=== PATIENT | female | born 1940 | race Caucasian/White ===

== ENCOUNTER 2023-04-04 14:14 | Observation (INO) | payer OTHER, SELFPAY ==
[2023-02-10 11:48] VITALS: BMI 32.2
[2023-04-03] VITALS (12 sets, daily range): BP systolic 125–211; BP diastolic 53–96; PULSE 61–82; RESP 16–20; TEMP 36–37.2; O2SAT 91–98; BMI 32.2
--- NOTE | 2023-04-03 06:00 | DI.RAD.S_ITS ---
PROCEDURE: XR KNEE LT 1TO2V INDICATIONS: TKA TECHNIQUE: 2 view(s) of the knee acquired. COMPARISON: None. FINDINGS: Bones: Patient is status post knee joint arthroplasty. Hardware components are in expected positions. Visualized bony structures are intact. Soft tissues: Overlying postoperative changes are noted. IMPRESSION: Normal alignment after left total knee arthroplasty performed earlier same day. Dictated by: Zohaib Phipps M.D. on 04/05/2023 at 1:01 Approved by: Zohaib Phipsp M.D. on 04/05/2023 at 1:01
[2023-04-03] MEDS: LABETALOL 20 MG/4 ML SYRINGE IV (14:48)
[2023-04-03] MEDS: ACETAMINOPHEN 325 MG TABLET 975 MG PO (14:56)
--- NOTE | 2023-04-03 15:03 | PM.PREOP ---
Pre-operative Note Interval Note History & Physical reviewed/Exam performed by Physician: Yes Changes to H&P: No H&P completed within 30 days and has changed as indicated here:: Blood pressure high today because she stopped her losartan when she stopped her Eliquis. Was treated with labetalol and improved prior to surgery. Anesthesia evaluated okay to proceed.
[2023-04-03] MEDS: CEFAZOLIN 2 GM/100 ML PREMIX 100 ML IV ×2 (15:40→23:42)
--- NOTE | 2023-04-03 16:08 | SUR.OPER ---
Supine on padded OR bed. Pillow under head, arms secured on padded armboards <90 degree abduction. Safety belt across torso. Non-operative leg secured with tape over blanket over lower leg. Operative leg secured in Jj positioner. Foam padded brace at thigh of operative leg.
[2023-04-03] MEDS: BUPIVACAINE 0.25% (PF) 60 ML, EPINEPHrine 0.3 MG INJ (16:16)
[2023-04-03] MEDS: BUPIVACAINE LIPOSOME 266 MG/20 ML VIAL INJ (16:18)
--- NOTE | 2023-04-03 18:16 | P.OP_ITS ---
Operative Date/Time/Diagnoses Date of procedure: 04/03/23 Time of procedure: 15:00 Pre-op diagnosis: Left knee arthritis M17.12 Post-op diagnosis: same Procedure & Clinicians Procedure: Total knee replacement left knee CPT code 46904 Same procedure as scheduled: Yes Indications: The patient has significant pain associated with osteoarthritis of the left knee. It is associated with morning stiffness. Pain interferes with daily normal function including ambulation standing and any activities that are weight-bearing. It interferes with sleep. There is crepitation with range of motion. There is marked joint line tenderness. X-rays show significant levels of osteoarthritis. attempted previous conservative treatment has been rendered. The patient has failed exercise program, medications and previous injections. Patient is indicated for total knee arthroplasty. The risks and benefits of the procedure have been discussed with the patient and given the opportunity to ask questions. The risks of surgery include but are not limited to infection, malunion, nonunion, persistence of pain, damage to nerves and blood vessels, posttraumatic arthritis, DVT, PE, cardiopulmonary complications and . The patient expressed a thorough understanding of the risks and benefits of surgery and has elected to proceed. Consent was signed. During the operation, the services of a physician surgical oncologist were medically indicated and necessary to provide the exposure of the operative site for the surgical procedure and to maintain the limb in a proper position to carry out the operation safely and efficiently. Without a qualified actuarial assistant being present this would extended the operative procedure and made the procedure technically more difficult to perform. Surgeon: Mili Kemp Varnish Inspector: Nadine Gage Yes if Unassisted: Yes Anesthesia Type: General, Spinal and Local Operative Notes Findings: End-stage valgus knee arthritis tricompartmental knee arthritis and full- thickness cartilage loss. Closure Type: primary Specimen(s): none sent Prosthetic devices, grafts, tissues, transplants, or devices: Scott and nephew [employer]CS Femur cobalt chromium size 4 Tibia size 4 Poly 11 mm Patella 32 x 7.5 Estimated Blood Loss (mL): 200 Blood products transfused: none Tourniquet time (min): 85 Procedure in detail: Patient was seen in the preoperative area where the patient and site of surgery were identified in the operative knee was marked informed consent confirmed. This was the left knee. Patient received the appropriate preoperative antibiotics this was 2 g of Ancef. And other preoperative medications and was taken to the operating room placed on operating table in the supine position. Spinal anesthetic were administered. The operative extremity was then prepped and draped in the standard sterile fashion with a nonsterile tourniquet high on the thigh. Patient was placed on the green foam bolsters. A lateral post was placed at the level of the proximal thigh /trochanter area as a lateral post. Formal time-out procedure was performed confirming the patient's side and site of surgery and administration of appropriate preoperative antibiotics and implants were in the room accounted for. All were in agreement. Patient received a preoperative dose of tranexamic acid and then a 2nd dose at tourniq uet release Patient was prepped and draped in the standard sterile fashion and the foot was placed into the leg peck. This was taken into high flexion and the incision was marked out over the anterior knee to the level of the medial tubercle tubercle. The Esmarch was then used for exsanguination and the tourniquet was inflated to 250 mmHg. Was made through the skin and subcutaneous tissue in high flexion this was then brought down into 30? of flexion for the medial parapatellar arthrotomy. A marker pen was used to jenniffer the arthrotomy site for later repair. Joint fluid was evacuated. The anterior osteophytes and soft tissues were removed. Routine medial release was initially made along the medial proximal tibia with Bovie. The patella was 1st cut using the saw sized and prepped and then subluxed throughout the case and protected. The leg was then taken into extension and the patella was everted and the patella was cut to accommodate the patellar button. This was sized to a 32 mm button for a 7.5 mm thickness to recreate the original dimensions of the patella. Poly was removed and the protector replaced and the patella was subluxed and the knee was taken back up into flexion and attention was returned to the femur. Then the rotational landmarks of Whitesides line and the trans epicondylar axis were marked on the femur with electrocautery. Then the intramedullary guide for the femur was created. The distal femoral cut was made in 5? of valgus using the intramedullary guide with the cut setting on 0+ as the patient did not have a preoperative flexion contracture. The ACL and PCL released. The proximal tibia was then cut using the intramedullary guide, taking 7 mm off the less involved side this was the medial plateau. The Brant wing was used to check the slope through the guide. Second pass was made through the tibial cut guide with the saw after the cut tibia was removed plane down about 1 more mm and further smooth then the resection surface. In extension remainders of the medial and lateral menisci were removed. The extension flexion gaps were then checked using both the flexion extension blocks. As expected the knee was tight laterally initially in extension and flexion. Soft tissue release was performed pie crusting the IT band additionally the popliteus was reassessed for the lateral flexion tightness. Lamina maintenance department technician was utilized to reassess the gaps. Was noted during the case that the popliteus tear did complete. The extension and flexion blocks were trialed these were stable with a 10 mm poly in flexion and extension. The femur was then sized and the rotation set using the posterior condyle referencing 5? of external rotation accommodating the known valgus deformity This measured a size 4. Cut block was then placed and the anterior, posterior and chamfer cuts were then made. The posterior osteophytes and soft tissues were then removed. Then in extension the posterior capsule was injected with a mixture of 40 mL of 0.25% Marcaine and 20 mL of Exparel care to avoid excessive injection posterior laterally. The remainder of this was saved for the capsule and subcutaneous tissue and placed during cement curing. Attention was then returned to the tibia and this was prepared with the rotation set by the extramedullary guide. Lined up with the tibial crest and the 2nd toe. The tibial trial was then pinned in place and the trial femoral components were placed. Then the intercondylar notch was cut through the femoral trial to create the box this was done with the distal than the proximal drill and then the box cut distally and then proximally. Next the insert was placed and the trial poly placed. This was stable in flexion and extension and there was a 0- 135 degree range of motion. The patella trial was placed in and was tracking normally. The tibia was then finished with the drill and flange cuts and then this was removed. All trials were removed. The wound and bone was irrigated with p ulsatile lavage. This was then dried with a sponge. The components were verified and opened and the cement was mixed. Cement was applied to the components and then to the bone then the tibia was ce mented in place 1st followed by the femur then the patella. Excess cement was removed. With care looking around the back of the knee. Remainder of the injection was injected around the capsule. trial poly was placed back in the leg was placed into extension for the patellar cementing. After this was cured approximately 15 minutes later and the dilute Betadine solution was placed for at least 3 minutes in the wound this was then irrigated out and the final poly was placed. This was a 11 mm poly. The tourniquet was released hemostasis was achieved. Final 1g of tranexamic acid was given IV at the time of tourniquet release. The capsule was closed with 1. Ethibond suture. And the Quill stitch. Subcutaneous layer was closed with 3-0 Vicryl suture. Skin was closed with a running V lock suture Stratafix Monocryl type suture and Dermabond. An michelle dressing was placed given this patient's requirements of strong anticoagulation. An Lee wrap was applied. Anesthetic was terminated the patient was woken from anesthesia and taken to recovery room in good condition. There no immediate complications from this procedure. The patient will be maintained on a standard total knee re placement protocol with weight-bearing as tolerated. Complications: none Post-operative Condition: stable Disposition: PACU Plan for aftercare: Weightbear as tolerated. Patient will be admitted overnight for pain control. We will work with physical therapy. Will be discharged home when pain controlled and safe for physical therapy. Likely tomorrow. We will restart her Eliquis tomorrow evening which would be 24 hours postop. She already has prescriptions for her pain medications and antinausea medication issued from the clinic. Follow up in 2 weeks in [facility]opedic Clinic. Weightbear as tolerated. Full knee range of motion as tolerated We will start outpatient physical therapy within 1 week
[2023-04-03] MEDS: ACETAMINOPHEN 325 MG TABLET 650 MG PO ×2 (18:54→23:42)
[2023-04-03] MEDS: LACTATED RINGERS 1,000 ML 100 ML IV (18:54)
[2023-04-03] MEDS: HYDROMORPHONE 0.5 MG INJ IV (20:40)
[2023-04-03] MEDS: OXYCODONE IR 10 MG TABLET PO ×2 (20:41→23:43)
[2023-04-03] MEDS: GABAPENTIN 300 MG CAPSULE PO (20:41)
[2023-04-03] MEDS: LOSARTAN 50 MG TABLET PO (20:41)
[2023-04-03] MEDS: hydrOXYzine pamoate 25 MG CAPSULE PO (20:41)
[2023-04-03] MEDS: DOCUSATE 100 MG CAPSULE PO (20:42)
[2023-04-04] VITALS (7 sets, daily range): BP systolic 122–176; BP diastolic 56–92; PULSE 54–99; RESP 16–20; TEMP 35.8–36.6; O2SAT 96–99
[2023-04-04] MEDS: OXYCODONE IR 10 MG TABLET PO ×6 (02:48→23:34)
[2023-04-04] MEDS: hydrOXYzine pamoate 25 MG CAPSULE PO ×2 (02:49→11:35)
[2023-04-04] MEDS: ONDANSETRON 4 MG/2 ML INJ IV (03:08)
[2023-04-04] MEDS: HYDROMORPHONE 0.5 MG INJ IV (03:22)
[2023-04-04 05:22] LABS: Hematocrit 35.4 % (36-46); Hemoglobin 11.9 g/dL (12.0-16.0)
[2023-04-04] MEDS: LEVOTHYROXINE 88 MCG TABLET PO (06:30)
[2023-04-04] MEDS: ACETAMINOPHEN 325 MG TABLET 650 MG PO ×3 (06:31→20:16)
[2023-04-04] MEDS: CEFAZOLIN 2 GM/100 ML PREMIX 100 ML IV (08:24)
[2023-04-04] MEDS: LOSARTAN 50 MG TABLET PO ×2 (09:57→20:17)
[2023-04-04] MEDS: DOCUSATE 100 MG CAPSULE PO ×2 (09:58→20:16)
[2023-04-04] MEDS: OXYBUTYNIN 5 MG ER TAB PO (09:58)
--- NOTE | 2023-04-04 10:09 | PM.PNPO.1 ---
Subjective Subjective Date Patient Seen: 04/04/23 Time Patient Seen: 10:09 Interval history: Pt sitting up in bed, eating breakfast on my visit. She is extremely anxious because she feels she cannot fully wake up. She says she is tired and wants to go back to bed but she know she shouldn't feel this way. She says she has very little sensation in her left leg. She has not been OOB or worked with PT yet. Exam Vital Signs (past 8 hours): - 04/04/23 04:37 04/04/23 08:01 04/04/23 09:57 Temperature 96.9 F L 97.8 F Pulse Rate 99 H 54 L 69 Respiratory Rate 20 17 Blood Pressure 176/92 H 124/56 L 137/61 Pulse Oximetry 96 97 Oxygen Flow Rate 0 Oxygen Delivery Method Room Air Oxygen Flow Rate 0 Narrative Exam Narrative: 3/4 strength in hip flexors, 4/5 hamstrings, quadriceps, 5/5 DF, PF, EHL on left. Sensation to light touch is dulled in LLE vs RLE. Calf soft and compressible. KRISTINA functioning, EUNICE and KRISTINA CDI. Objective Labs 04/04/23 04:35 Labs: Laboratory Results - last 24 hr 04/04/23 04:35 Hgb 11.9 L Hct 35.4 L PFSH Medical History (Updated 04/04/23 @ 10:13 by Nadine Rasmussen PA-C) Stress bladder incontinence, female High myopia Hearing loss CAD (coronary artery disease) History of sleep apnea History of gastroesophageal reflux (GERD) History of arthritis Trigeminal neuralgia History of TIA (transient ischemic attack) History of hearing loss History of hyperlipidemia History of hypertension History of hypothyroidism History of anticoagulant therapy History of chronic atrial fibrillation Surgical History (Updated 04/04/23 @ 10:13 by Nadine Rasmussen PA-C) History of surgery (~2004) History of surgery (~09/30/17) History of inguinal hernia repair (~11/26/16) History of hip replacement History of coronary artery stent placement (~2001) History of coronary angioplasty (~06/2001) History of cochlear implant History of cataract extraction (~2012) History of cardiac catheterization (~12/2001) History of angioplasty Social History household members: spouse and none Smoking Status: Former smoker alcohol intake: current Assessment & Plan Post-op Assessment and plan (1) Total knee replacement status: Assessment and Plan narrative: Pt had spinal and local anesthesia yesterday, which is likely contributing to the dysesthesia in her left leg. Given this as well as her anxiety and apprehension, I anticipate slow progress with PT. It would be in the pts best interest to be admitted as an inpatient for continued therapy and monitoring of vital signs, pain, and return of feeling in her operative leg. Plan discussed by phone with pts daughter, Akua, and she is agreeable. (2) Acute postoperative anemia due to expected blood loss: Assessment and Plan narrative: Asymptomatic, no intervention needed at this time but will continue to monitor. Postoperative Procedures: Procedures Operation Date: 04/03/23 14:15 Actual Procedure Side Surgeon p Total Knee Arthroplasty Left Mili Kemp MD Postoperative day: 1 Quality VTE Deep Vein Thrombosis/Pulmonary Embolism Present on Admission: No
--- NOTE | 2023-04-04 10:15 | PT.IIE ---
Current Diagnoses Acute posthemorrhagic anemia (04/03/23) Unilateral primary osteoarthritis, left knee (04/03/23) Presence of unspecified artificial knee joint (04/03/23) Surgery Performed Operation Date: 04/03/23 14:15 Actual Procedures p Total Knee Arthroplasty(Left) - Mili Kemp MD Surgical History (Last Updated 02/10/23 @ 11:44 by Carol Hawkins, FARIHA) History of angioplasty History of cardiac catheterization (~12/2001) History of cataract extraction (~2012) History of cochlear implant History of coronary angioplasty (~06/2001) History of coronary artery stent placement (~2001) History of hip replacement History of inguinal hernia repair (~11/26/16) History of surgery (~09/30/17) History of surgery (~2004) Medical History (Last Updated 02/11/23 @ 15:17 by Angel Victor RN) CAD (coronary artery disease) Hearing loss High myopia History of anticoagulant therapy History of arthritis History of chronic atrial fibrillation History of gastroesophageal reflux (GERD) History of hearing loss History of hyperlipidemia History of hypertension History of hypothyroidism History of sleep apnea History of TIA (transient ischemic attack) Stress bladder incontinence, female Trigeminal neuralgia Physical Therapy Inpatient Evaluation/Re-Eval M1 PT/OT-IP Prior Functional Status Start: 04/04/23 13:12 Freq: NEEDED Status: Active Protocol: Document 04/04/23 10:15 AB (Rec: 04/04/23 13:36 AB [id number]) Medical Review Prior Functional Status Medical History Reviewed Yes Communication able to make needs known; [facility] Mobility and Gait pt stated that she was modified independent with all mobilities and ambulation without AD but tends to furniture cruise Social History Household Members spouse,none Living Arrangements House Number of Floors (Floors) One Floor Number of Stairs To Enter/Railing? 3 steps R rail ascending Home Environment Standard Height Toilet,Walk in Shower,Tub/Shower Home Equipment Front Wheel Walker,Straight Cane,Hand Held Shower,Grab Bars Near Toilet,Grab Bars In Shower M2 PT-IP Current Condition Start: 04/04/23 13:12 Freq: NEEDED Status: Active Protocol: Document 04/04/23 10:15 AB (Rec: 04/04/23 13:36 AB [id number]) Physical Therapy Current Condition Current Condition Evaluation Date 04/04/23 Treatment Diagnosis s/p L TKA; difficult in walking Onset Date 04/03/23 M3 PT-IP Subjective Start: 04/04/23 13:12 Freq: NEEDED Status: Active Protocol: Document 04/04/23 10:15 AB (Rec: 04/04/23 13:36 AB [id number]) Subjective Physical Therapy Visit Type Type Initial Evaluation Visit Start Time 10:15 Visit Stop Time 11:35 Total Visit Minutes 80 Number of MACHINE OPERATOR HOP PICKER Visits 0 Physical Therapy Visit Comments Patient Comments agreeable to do PT Therapy Pain Assessment Pain When Pain Assessed At Rest Pain Present Pain Present Pain Reported Location Left Knee Intensity 2 Scale Used increases with mobility Pain Behaviors Guarding,Wincing Pain Management Techniques Apply Cold,Distraction,Re- positioning,Timing of Activity with Medications M4 PT-IP Mobility and Gait Start: 04/04/23 13:12 Freq: NEEDED Status: Active Protocol: Document 04/04/23 10:15 AB (Rec: 04/04/23 13:36 AB [id number]) PT-Bed Mobility Assessment Supine to Sit Supine to Sit Standby Assistance PT-Transfer Assessment Sit to and From Stand Sit to and from Stand Contact Guard Assistance, Minimal Assistance,1 Person Assistance,Use of Upper Extremities Equipment Transfer Assistive Device Gait Belt,Front Wheeled Walker Orthotic/Prosthetic Devices or Brace: No Transfers Transfer Destination Toilet Transfer Technique ambulated Transfer Ability Level of Assist Contact Guard Assistance, Minimal Assistance,Use of Upper Extremities Comments Mobility Comments pt supine in bed and agreeable to do PT. pt is very particular with her ways and tends to direct her own care. completed supine to sit SBA. able to sit on EOB SBA. Pt initially refusing use of safety belt. educated pt and pt then agreed for PT to use safety belt. pt requesting to use the toilet. completed sit to stand CGA to min A and max cues. pt ambulated using fWW towards the toileting ~ 15 ft CGA to min A. requiring min A for controlled descent to the toilet using grab bar. pt completed sit to stand from the toilet CGA to min A using grab bar and ambulated towards the sink using FWW CGA to min A. CGA for standing balance while completing handwashing using FWW for support. pt ambulated back on the chair using fWW CGA. pt agreed to do stairs. completes sit to stand from the chair CGA and ambulated ~ 30 ft using fWW CGA to min A. pt stated that she cannot walk farther due to c/o increase knee pain. assisted pt on the w/c towards the stairs. pt completed up/down 3 steps using B rail min A. able to do 2 steps up using R rail ascending but needed B rails for support for descending stairs. pt stated that she cannot take a step down with just 1 rail use. assisted pt back to her room. ambulated from the w/c to the chair using FWW min A ~ 25 ft. pt increase confusion and pain and needing one step commands with all tasks for safety. positioned pt on the chair. call light and table placed within reach. informed pt regarding caregiver training and wants PT to call her daughter. pt stated that she does not think her daughter will be able to assist her and is considering going to SNF. nurse informed that pt refused pain meds this morning. talked to pt regarding pain management and how this will affect her mobility. pt understood. call pt's daughter but with no answer. Gait Assessment Gait Gait Assistance Required: Contact Guard Assist,Minimum Assistance,1 Person Assist Distance (Feet) 30 Able to Maintain Weight Bearing Status Yes During Gait Assistive Devices Assistive Device Gait Belt,Front Wheeled Walker Orthotic/Prosthetic Devices or Brace: No Gait Deviations General Gait Pattern Decreased Stride Length, Decreased Feet Clearance,Step- to Gait Factors Limiting Gait Function Factors Limiting Gait Function Decreased Activity Tolerance, Decreased Strength,Difficulty Following Directions,Limited Range of Motion,Pain,Poor Balance,Poor Safety Awareness Stair Climbing Assessment Evaluation Level of Assist On Stairs Minimal Assistance,1 Person Assistance Devices Stair Climbing Assistive Devices Left Railing,Right Railing Technique/Endurance Stair Climbing Direction Ascend and Descend Stair Climbing Technique Step to Step Number of Steps Climbed 1 Query Text: Stair Climbing Set # Repetitions (reps) 1 PT-Balance Assessment Sitting Balance and Reactions Static Sitting Balance Ability Good Dynamic Sitting Balance Ability Good Standing Balance and Reactions Static Standing Balance Ability Fair Dynamic Standing Balance Ability Fair Device Used FWW M5 PT-IP Objective Assessments Start: 04/04/23 13:12 Freq: NEEDED Status: Active Protocol: Document 04/04/23 10:15 AB (Rec: 04/04/23 13:36 AB [id number]) Orientation Orientation/Cognition Level of Alertness Alert Orientation Name,Place,Situation Language Function Ability Hard of Hearing Safety Awareness Decreased Safety Awareness Memory Description Short Term Impaired Comments with confusion Gross Range of Motion Lower Extremity ROM Impairments L knee flexion: ~ 70 deg Strength Lower Extremity Strength Assessment Left Impaired Hip 4-/5 Knee 3+/5 Muscle Tone Muscle Tone WNL Yes M6 PT-IP Treatment Start: 04/04/23 13:12 Freq: NEEDED Status: Active Protocol: Document 04/04/23 10:15 AB (Rec: 04/04/23 13:36 AB [id number]) Physical Therapy Treatment Education Education Provided Precautions,Weight Bearing Status,Post-Op Packet,Safety M7 PT-IP Assessment and Plan Start: 04/04/23 13:12 Freq: NEEDED Status: Active Protocol: Document 04/04/23 10:15 AB (Rec: 04/04/23 13:36 AB [id number]) PT Summary Assessment and Plan Potential Rehabilitation Potential Fair Status of Condition at Evaluation Evolving Summary Impairments Pain,ROM,Strength,Balance, Coordination,Sensation,Tone, Cognition,Bed Mobility, Transfers,Gait,Activity Tolerance Assessment Summary pt is an 82 y/o female s/p L TKA POD 1 and is WBAT. pt requiring min A with mobility using FWW but with decrease activity tolerance and only able to ambulate ~ 30 with c/o increase knee pain. pt also unable to successfuly complete stairs using 1 rail. caregiver training will be initiated this afternoon but pt stated that her daughter might not be able to assist her and is considering going to SNF rehab. will continue to assess progress. Goals Bed Mobility Goal Independent Transfer Goal Independent,Front Wheeled Walker Gait Goal Independent,Front Wheel Walker Gait Distance 250 Other Goals up/down 3 steps R rail ascending SBA Days to Meet Goals 5 Frequency of Treatment Frequency Of Treatment Twice a Day Treatment Plan Physical Therapy Treatment Plan Bed Mobility Training,Transfer Training,Gait Training, Therapeutic Exercise,Balance Retraining,Post Op Education, Discharge Planning,Hot or Cold Pack,Neuromuscular Re-ed, Coordination Retraining,Manual Therapy Weight Bearing Status Weight Bearing Status Weight Bear as Tolerated Allowed Weight Bearing Amount (enter % LLE WBAT or #) (%) Recommendations To Nursing Amount of Assist Needed 1 Person Assist Discharge Recommendations PT Discharge Recommendations Home with 22/12 Assist Available,Home Health,SNF Rehab,Home vs SNF Transportation Needs at Discharge Private Vehicle,Wheelchair/ Cabulance
--- NOTE | 2023-04-04 12:28 | CM.DANOTE ---
CM team attempted to complete assessment this morning and again this afternoon. Patient remains very sleepy and cannot stay awake for conversation. Sitting up in chair, awakens, then appologizes for being so tired. Call to daughter kAua Brennan at [phone] with patients permission, VM left requesting return call to CM team. Discharge Planning/Care Management Pre-Anesthesia Assessment Start: 02/10/23 11:48 Freq: Status: Complete Protocol: Document 02/10/23 11:48 TC (Rec: 02/10/23 12:10 TC [id number]) Pre-Anesthesia Assessment PAC Comment Patient unavailable for PAC, she was instructed by underwater hunter to stop Elliquis 3-4 days pre op and resume POD 1 Patient Information Reviewed Via Chart Review Assessment Completed With Other Comment medical records from [facility] Diagnostic Results BMP/CMP,CBC,EKG Comment scanned Comment Destini Matos Medical Clearance Received Not Applicable Seen Specialist in Last 12 Months Yes Specialist Seen Senior C Developer,Orthopedist Primary Language Azerbaijani Preferred Language Azerbaijani Senior Data Scientist Required No Height 152.4 cm Weight 74.843 kg Body Mass Index (BMI) 32.2 Hearing Ability Hearing Impaired,Use of Hearing Aid Visual Assist Contacts Anesthesia Review Requested No Supervisor Of Guidance And Testing No alcohol intake current alcohol intake frequency a few times a week Smoking Status Former smoker how long ago did patient quit smoking about 45 years (1977) Substance Use Type marijuana Musculoskeletal Symptoms Abnormal Gait,Difficulty Walking,Joint Pain,Joint Stiffness Patient is completely paralyzed or No completely immobile Mental Status Oriented to own ability Is patient on oxygen? No Does patient have JEREZ/SOB No Hx Sleep Apnea Yes Sleep apnea treatment Treatment unknown Currently Taking a Beta Parth No Anti-Coagulant Therapy Yes: Jesenia Has a Senior C Developer Yes Senior C Developer name Catherine Cardiac Testing Yes: stress test July 2020- low risk Hx Pacemaker/ICD No Pacemaker Rep Required? No Cardiac Clearance Received Yes Comment note scanned 10/07/22 Bladder Pattern Incontinent, Stress,Urgency Urinary Catheter Present No Hx Urinary Self Catheterization No Diabetes No Patient No Lactating No Presence of External or Internal Medical Yes: Osito IOL's, Cochlear Devices implant, Coronary stent, hip Lives With none Support System Child/Children
[2023-04-04] MEDS: OXYCODONE IR 5 MG TABLET PO (13:48)
--- NOTE | 2023-04-04 14:05 | PT.IPTN ---
Current Diagnoses Acute posthemorrhagic anemia (04/03/23) Unilateral primary osteoarthritis, left knee (04/03/23) Presence of unspecified artificial knee joint (04/03/23) Surgery Performed Operation Date: 04/03/23 14:15 Actual Procedures p Total Knee Arthroplasty(Left) - Mili Kemp MD Physical Therapy Treatment Note M2 PT-IP Current Condition Start: 04/04/23 13:12 Freq: NEEDED Status: Active Protocol: Document 04/04/23 10:15 AB (Rec: 04/04/23 13:36 AB [id number]) Physical Therapy Current Condition Current Condition Evaluation Date 04/04/23 Treatment Diagnosis s/p L TKA; difficult in walking Onset Date 04/03/23 M3 PT-IP Subjective Start: 04/04/23 13:12 Freq: NEEDED Status: Active Protocol: Document 04/04/23 14:05 AB (Rec: 04/04/23 15:47 AB [id number]) Subjective Physical Therapy Visit Type Type Treatment Note Visit Start Time 14:05 Visit Stop Time 15:25 Total Visit Minutes 80 Number of PROPERTY MAN Visits 0 Therapy Pain Assessment Pain When Pain Assessed At Rest Pain Present Pain Present Pain Reported Location Left Knee Intensity 4 Scale Used Numeric (0 - 10) Pain Management Techniques Distraction,Modification of Treatment,Re-positioning, Timing of Activity with Medications M4 PT-IP Mobility and Gait Start: 04/04/23 13:12 Freq: NEEDED Status: Active Protocol: Document 04/04/23 14:05 AB (Rec: 04/04/23 15:47 AB [id number]) PT-Bed Mobility Assessment Supine to Sit Supine to Sit Standby Assistance Sit to Supine Sit to Supine Standby Assistance PT-Transfer Assessment Sit to and From Stand Sit to and from Stand Contact Guard Assistance,1 Person Assistance,Use of Upper Extremities Equipment Transfer Assistive Device Gait Belt,Front Wheeled Walker Orthotic/Prosthetic Devices or Brace: No Transfers Transfer Destination Bed,Chair Transfer Technique Stand Step Pivot Transfer Ability Level of Assist Contact Guard Assistance,1 Person Assistance,Use of Upper Extremities Comments Mobility Comments pt sitting on the chair. daughter in room with pt. caregiver training conducted. educated daughter on how to use safety belt and how to assist pt. daughter was able to put safety belt on pt and assisted pt with sit to stand CGA. pt completed step transfer to bed using FWW CGA with daughter assisting. pt completed sit<>supine SBA. pt completed sit to stand from EOB CGA and ambulated in the hallway ~ 75 ft using FWW CGA. educated pt and daughter regarding stair climbing training using R rail ascending. pt completed up/ down steps holding on to R rail with B hands min A and cues. assisted pt back to her room. daughter assisted pt with sit to stand and ambulation towards the toilet per pt's request. nurse in room and assisted pt with toileting needs. informed daughter regarding DME needs. pt will need a RTS with handles. pt stated that she is not ready to go home and wants to go to SNF even if she has to pay out of pocket. pharmacy general manager is aware. Gait Assessment Gait Gait Assistance Required: Contact Guard Assist Distance (Feet) 75 Able to Maintain Weight Bearing Status Yes During Gait Assistive Devices Assistive Device Gait Belt,Front Wheeled Walker Orthotic/Prosthetic Devices or Brace: No Gait Deviations General Gait Pattern Decreased Stride Length, Decreased Feet Clearance Factors Limiting Gait Function Factors Limiting Gait Function Decreased Activity Tolerance, Decreased Strength,Difficulty Following Directions,Limited Range of Motion,Pain,Poor Balance,Poor Safety Awareness Stair Climbing Assessment Evaluation Level of Assist On Stairs Minimal Assistance Devices Stair Climbing Assistive Devices Right Railing Technique/Endurance Stair Climbing Direction Ascend and Descend Stair Climbing Technique Step to Step Number of Steps Climbed 3 M5 PT-IP Objective Assessments Start: 04/04/23 13:12 Freq: NEEDED Status: Active Protocol: Document 04/04/23 10:15 AB (Rec: 04/04/23 13:36 AB [id number]) Orientation Orientation/Cognition Level of Alertness Alert Orientation Name,Place,Situation Language Function Ability Hard of Hearing Safety Awareness Decreased Safety Awareness Memory Description Short Term Impaired Comments with confusion Gross Range of Motion Lower Extremity ROM Impairments L knee flexion: ~ 70 deg Strength Lower Extremity Strength Assessment Left Impaired Hip 4-/5 Knee 3+/5 Muscle Tone Muscle Tone WNL Yes M6 PT-IP Treatment Start: 04/04/23 13:12 Freq: NEEDED Status: Active Protocol: Document 04/04/23 14:05 AB (Rec: 04/04/23 15:47 AB [id number]) Physical Therapy Treatment Education Education Provided Safety M7 PT-IP Assessment and Plan Start: 04/04/23 13:12 Freq: NEEDED Status: Active Protocol: Document 04/04/23 14:05 AB (Rec: 04/04/23 15:47 AB [id number]) PT Summary Assessment and Plan Potential Rehabilitation Potential Fair Summary Impairments Pain,ROM,Strength,Balance, Coordination,Sensation,Tone, Cognition,Bed Mobility, Transfers,Gait,Activity Tolerance Progress Towards Goals Slow Progress due to Pain,Slow Progress due to Activity Tolerance Assessment Summary pt progressing slowly with mobility and needing CGA using a FWW. Caregiver training conducted and daughter was able to assist pt safely. pt may go home when medically stable. pt stated that she is not ready to go home and wants to go to SNF rehab. pharmacy general manager is aware. will continue to assess progress. Goals Bed Mobility Goal Independent Transfer Goal Independent,Front Wheeled Walker Gait Goal Independent,Front Wheel Walker Gait Distance 250 Other Goals up/down 3 steps R rail ascending SBA Days to Meet Goals 5 Frequency of Treatment Frequency Of Treatment Twice a Day Treatment Plan Physical Therapy Treatment Plan Bed Mobility Training,Transfer Training,Gait Training, Therapeutic Exercise,Balance Retraining,Post Op Education, Discharge Planning,Hot or Cold Pack,Neuromuscular Re-ed, Coordination Retraining,Manual Therapy Weight Bearing Status Weight Bearing Status Weight Bear as Tolerated Allowed Weight Bearing Amount (enter % LLE WBAT or #) (%) Recommendations To Nursing Amount of Assist Needed 1 Person Assist Discharge Recommendations PT Discharge Recommendations Home with 22/12 Assist Available,Home Health Transportation Needs at Discharge Private Vehicle
--- NOTE | 2023-04-04 14:14 | CM.DANOTE ---
Addendum entered by Bernie Archer R.N. 04/04/23 15:52: CM team met with patient and her daughter Akua who now offer that they don't feel comfortable going home with HH PT and are wanting to private pay for SNF. Packets sent to 1. [facility], 2. [facility], 3. [facility] in order of patient choice. CM team also called each facility and will follow up in am. Original Note: Reviewed chart with existing information, and patient discussed in multidisciplinary rounds this morning. Met with patient and introduced to care coordination and discharge planning. They agree to assessment. Pt is a 82 year old admitted for planned left knee total arthroplasty with Dr. Loco. Patient was very disoriented this morning for attempted CM assessment. Now mentally alert, clear, but states pain remains 9/10. Daughter Akua at bedside for caregiver training, but outlines concern at home in getting into home. She plans to stay with mom, but welcomes feedback from PT re possible SNF needs for short term rehab. SNF list provided and patient daughter agree that [facility] first choice if indicated. HH PT acceptable as well choice to be determined. PCP: CHRISTINE DME: Joseph KAMARAe Payer: Kevyn YAN Barriers: pain, strength, balance training Bernie Archer RN, CM Discharge Planning/Care Management CM Discharge Assessment Start: 04/04/23 14:10 Freq: Status: Active Protocol: Document 04/04/23 14:11 BQ (Rec: 04/04/23 14:13 BQ [id number]) Discharge Planning Assessment Assigned Fruit Or Nut Farm Worker Bernie Archer RN, CM Advance Directives? Yes Advance Directives on File No History Provided By Patient,Medical Record Has Patient been admitted in last 30 No days? Prior Living Arrangements House Household Members spouse,none Type of transporation used prior to Drives own vehicle admit Independent with ADL's Yes Is patient alert and oriented? Yes Caregiver for Another No DME Already Rented / Owned FWW / Walker,Cane Patient/Family Preference Snf Facility Barriers to Discharge Yes Comment Pain, strength, balance, safety Discharge Plan Snf Facility Referrals Initiated Snf Medicare Choice List Provided Yes Medicare choice list reviewed on patient,family electronic tablet with SNF/HH Preference [facility] Has Agency SNF been contacted Yes Whiteboard Updated in Patient Room with Yes name and ext. # of Fruit Or Nut Farm Worker Review Status In Process Next Review Type Continued Stay Review Pre-Anesthesia Assessment Start: 02/10/23 11:48 Freq: Status: Complete Protocol: Document 02/10/23 11:48 TC (Rec: 02/10/23 12:10 TC [id number]) Pre-Anesthesia Assessment PAC Comment Patient unavailable for PAC, she was instructed by dairy helper to stop Elliquis 3-4 days pre op and resume POD 1 Patient Information Reviewed Via Chart Review Assessment Completed With Other Comment medical records from [facility] Diagnostic Results BMP/CMP,CBC,EKG Comment scanned Comment Destini Matos Medical Clearance Received Not Applicable Seen Specialist in Last 12 Months Yes Specialist Seen Rug Measurer,Orthopedist Primary Language Romanian Preferred Language Romanian Road Marker Required No Height 152.4 cm Weight 74.843 kg Body Mass Index (BMI) 32.2 Hearing Ability Hearing Impaired,Use of Hearing Aid Visual Assist Contacts Anesthesia Review Requested No Customer Trainer No alcohol intake current alcohol intake frequency a few times a week Smoking Status Former smoker how long ago did patient quit smoking about 45 years (1977) Substance Use Type marijuana Musculoskeletal Symptoms Abnormal Gait,Difficulty Walking,Joint Pain,Joint Stiffness Patient is completely paralyzed or No completely immobile Mental Status Oriented to own ability Is patient on oxygen? No Does patient have JEREZ/SOB No Hx Sleep Apnea Yes Sleep apnea treatment Treatment unknown Currently Taking a Beta Parth No Anti-Coagulant Therapy Yes: Jesenia Has a Rug Measurer Yes Rug Measurer name Catherine Cardiac Testing Yes: stress test July 2020- low risk Hx Pacemaker/ICD No Pacemaker Rep Required? No Cardiac Clearance Received Yes Comment note scanned 10/07/22 Bladder Pattern Incontinent, Stress,Urgency Urinary Catheter Present No Hx Urinary Self Catheterization No Diabetes No Patient No Lactating No Presence of External or Internal Medical Yes: Osito IOL's, Cochlear Devices implant, Coronary stent, hip Lives With none Support System Child/Children
[2023-04-04] MEDS: APIXABAN 5 MG TABLET PO (20:17)
[2023-04-05 00:05] VITALS: BP 172/57; PULSE 75; RESP 20; TEMP 36.4; O2SAT 95
[2023-04-05] MEDS: ACETAMINOPHEN 325 MG TABLET 650 MG PO ×3 (06:50→18:00)
[2023-04-05] MEDS: OXYCODONE IR 5 MG TABLET PO ×4 (06:51→18:00)
[2023-04-05] MEDS: LEVOTHYROXINE 88 MCG TABLET PO (06:51)
--- NOTE | 2023-04-05 07:46 | P.DS_ITS ---
History of Present Illness History of Present Illness Date Patient Seen: 04/05/23 Time Patient Seen: 07:46 Chief complaint: OPB Narrative: Operative Date/Time/Diagnoses Date of procedure: 04/03/23 Time of procedure: 15:00 Pre-op diagnosis: Left knee arthritis M17.12 Post-op diagnosis: same Procedure & Clinicians Procedure: Total knee replacement left knee CPT code 64728 Same procedure as scheduled: Yes Indications: The patient has significant pain associated with osteoarthritis of the left knee. It is associated with morning stiffness. Pain interferes with daily normal function including ambulation standing and any activities that are weight-bearing. It interferes with sleep. There is crepitation with range of motion. There is marked joint line tenderness. X-rays show significant levels of osteoarthritis. attempted previous conservative treatment has been rendered. The patient has failed exercise program, medications and previous injections. Patient is indicated for total knee arthroplasty. The risks and benefits of the procedure have been discussed with the patient and given the opportunity to ask questions. The risks of surgery include but are not limited to infection, malunion, nonunion, persistence of pain, damage to nerves and blood vessels, posttraumatic arthritis, DVT, PE, cardiopulmonary complications and . The patient expressed a thorough understanding of the risks and benefits of surgery and has elected to proceed. Consent was signed. During the operation, the services of a physician operating room surgical technologist were medically indicated and necessary to provide the exposure of the operative site for the surgical procedure and to maintain the limb in a proper position to carry out the operation safely and efficiently. Without a qualified equal opportunity assistant being present this would extended the operative procedure and made the procedure technically more difficult to perform. Surgeon: Mili Kemp Boring Machine Operator Horizontal: Nadine Gage Yes if Unassisted: Yes Anesthesia Type: General, Spinal and Local Operative Notes Findings: End-stage valgus knee arthritis tricompartmental knee arthritis and full- thickness cartilage loss. Closure Type: primary Specimen(s): none sent Prosthetic devices, grafts, tissues, transplants, or devices: Scott and nephew [employer] BCS Femur cobalt chromium size 4 Tibia size 4 Poly 11 mm Patella 32 x 7.5 Estimated Blood Loss (mL): 200 Blood products transfused: none Tourniquet time (min): 85 Discharge Providers Provider Discharge Date: 04/05/23 Consults: 04/03/23 06:00 Consult to Anesthesiology Routine Comment: Consulting Provider: Anesthesiologist Reason for consultation: Regional block for post operative pain control 04/03/23 18:29 Consult to Discharge Planning Routine Comment: Consult to Occupational Therapy Evaluate & Treat Comment: Physician Instructions: Evaluate and treat Consult to Physical Therapy Evaluate & Treat Comment: Physician Instructions: postop TKA protocol Discharge provider: Nadine Rasmussen PA-C Summary Hospital Course Discharge Diagnosis: Left knee osteoarthritis, s/p left total knee arthroplasty Hospital Course: Ms Turk'roberta hospital course was unremarkable. On the morning of POD# 2, she was feeling well. PT was recommending discharge home with 24/7 assist available. While she does have the help of her daughter, Akua, it sounds from CM notes and from Akua that pt would like to go to a rehab facility prior to going home. She is eating and voiding without difficulty and her pain is well- controlled with oral medication. Exam Vital Signs (past 8 hours): Oxygen Delivery Method Room Air Oxygen Flow Rate 0 Narrative Exam Narrative: 5/5 strength in hip flexors, quadriceps, hamstrings, PF, DF, EHL on left. Sensation to light touch intact throughout LLE. Calf soft, compressible, nontender. KRISTINA dressing functioning, CDI. Objective Labs 04/04/23 04:35 PFSH Medical History (Updated 04/04/23 @ 10:13 by Nadine Rasmussen PA-C) Stress bladder incontinence, female High myopia Hearing loss CAD (coronary artery disease) History of sleep apnea History of gastroesophageal reflux (GERD) History of arthritis Trigeminal neuralgia History of TIA (transient ischemic attack) History of hearing loss History of hyperlipidemia History of hypertension History of hypothyroidism History of anticoagulant therapy History of chronic atrial fibrillation Surgical History (Updated 04/04/23 @ 10:13 by Nadine Rasmussen PA-C) History of surgery (~2004) History of surgery (~09/30/17) History of inguinal hernia repair (~11/26/16) History of hip replacement History of coronary artery stent placement (~2001) History of coronary angioplasty (~06/2001) History of cochlear implant History of cataract extraction (~2012) History of cardiac catheterization (~12/2001) History of angioplasty Social History household members: spouse and none Smoking Status: Former smoker alcohol intake: current Discharge Assessment & Plan Assessment and Plan Assessment: Left knee osteoarthritis, s/p left total knee arthroplasty Acute anemia d/t expected surgical blood loss Plan of Treatment: Discharge pending SNF acceptance. Eliquis BID for VTE prophylaxis, multimodal pain control. Follow up in office in 2 weeks as scheduled. Discharge Plan Discharge Plan Patient Disposition: SNF Transportation: Facility vehicle I certify the postop hospital alf care is medically necessary on a continuing basis for any conditions for which he/ she received care during this hospitalization.: Yes The receiving facility has agreed to accept transfer and provide medical treatment.: Yes Discharge orders & Medications Prescriptions: New acetaminophen 325 mg Tablet 650 mg PO Q6H PRN (Reason: fever or pain) Qty: 240 0RF docusate sodium 100 mg Capsule 100 mg PO BID PRN (Reason: constipation) Qty: 60 1RF oxycodone 5 mg Tablet 5 mg PO Q4-6H PRN (Reason: Pain, Moderate (4-6)) Qty: 60 0RF Continued tolterodine 2 mg capsule,extended release 24hr 2 mg PO DAILY levothyroxine 88 mcg tablet 88 mcg PO DAILY Hair,Skin and Nails Tablet 1 tab PO DAILY losartan 100 mg tablet 50 mg PO BID neomycin-polymyxin B-dexameth 3.5 mg/g-10,000 unit/g-0.1 % ointment 1 ea EYE-BOTH DAILY Patient Comments: [NO ORIGINAL SIG] apple cider vinegar 500 mg Tablet 500 mg PO DAILY rosuvastatin 20 mg tablet 20 mg PO ONCE PM cholecalciferol (vitamin D3) [Vitamin D3] 125 mcg (5,000 unit) Tablet 125 mcg PO DAILY Eliquis 5 mg tablet 5 mg PO BID Follow up/Referrals: Mili Kemp MD [Physician] - As previously scheduled (Follow up with Nadine Rasmussen PA-C, on 04/16/2023 @ 2:30 pm at [facility] in [place].) Diet/Activity/Treatments Diet: Diet as Tolerated Activity: Walk frequently! Weightbearing as tolerated to left leg. Cold/Heat Therapy: Ice to knee as needed for pain. Skin/Wound/Dressing Care Report to your healthcare provider any signs of infection, such as:: chills, fever, night sweats, unusual drainage and unusual redness Dressing: May shower with dressing on. The battery pack will in 5-7 days, at which time you can cut it off and dispose of it. Leave the dressing on until your follow up appointment in the office. Call the office if the dressing becomes saturated inside. Special Rehabilitation Services Reason for rehabilitation: Post-operative therapy Rehab type: Physical therapy and Occupational therapy Visit Report/Discharge Packet Instructions: DI for Knee Replacement Stand Alone Forms: Surgery Discharge Discharge Data Attending Provider: Mili Kemp VTE Deep Vein Thrombosis/Pulmonary Embolism Present on Admission: No
[2023-04-05 08:48] VITALS: BP 140/70; PULSE 70; RESP 17; TEMP 36.7; O2SAT 96
--- NOTE | 2023-04-05 09:08 | CM.DPC ---
JOHAN recieved return call on from yesterday at 1655 concerning packet sent to [place] at [facility]. She relays a minumum of 5 day stay. Call back to [place] with left for her review.
[2023-04-05 09:10] VITALS: BP 140/70; PULSE 70
[2023-04-05] MEDS: DOCUSATE 100 MG CAPSULE PO (09:10)
[2023-04-05] MEDS: OXYBUTYNIN 5 MG ER TAB PO (09:10)
[2023-04-05] MEDS: APIXABAN 5 MG TABLET PO ×2 (09:10→21:11)
[2023-04-05] MEDS: LOSARTAN 50 MG TABLET PO ×2 (09:10→21:11)
--- NOTE | 2023-04-05 10:30 | PT.IPTN ---
Current Diagnoses Acute posthemorrhagic anemia (04/03/23) Unilateral primary osteoarthritis, left knee (04/03/23) Presence of unspecified artificial knee joint (04/03/23) Surgery Performed Operation Date: 04/03/23 14:15 Actual Procedures p Total Knee Arthroplasty(Left) - Mili Kemp MD Physical Therapy Treatment Note M2 PT-IP Current Condition Start: 04/04/23 13:12 Freq: NEEDED Status: Active Protocol: Document 04/04/23 10:15 AB (Rec: 04/04/23 13:36 AB [id number]) Physical Therapy Current Condition Current Condition Evaluation Date 04/04/23 Treatment Diagnosis s/p L TKA; difficult in walking Onset Date 04/03/23 M3 PT-IP Subjective Start: 04/04/23 13:12 Freq: NEEDED Status: Active Protocol: Document 04/05/23 10:05 KS (Rec: 04/05/23 11:44 KS [id number]) Subjective Physical Therapy Visit Type Type Treatment Note Visit Start Time 10:05 Visit Stop Time 10:30 Total Visit Minutes 25 Number of SECURITY POLICE Visits 1 Physical Therapy Visit Comments Patient Comments agreeable to do PT Therapy Pain Assessment Pain When Pain Assessed During Mobility Pain Present Pain Present Pain Reported Location Left Knee Intensity 10 Scale Used Numeric (0 - 10) Pain Behaviors Calling Out,Crying,Facial Grimacing,Moaning,Restlessness ,Wincing Pain Management Techniques Elevation,Modification of Treatment,Re-positioning, Timing of Activity with Medications M4 PT-IP Mobility and Gait Start: 04/04/23 13:12 Freq: NEEDED Status: Active Protocol: Document 04/05/23 10:05 KS (Rec: 04/05/23 11:44 KS [id number]) PT-Bed Mobility Assessment Supine to Sit Supine to Sit Standby Assistance Sit to Supine Sit to Supine Moderate Assistance,1 Person Assistance Scooting Scooting to Edge of Bed Standby Assistance Scooting Up and Down in Bed Maximum Assistance PT-Transfer Assessment Sit to and From Stand Sit to and from Stand Minimal Assistance,1 Person Assistance,Use of Upper Extremities Equipment Transfer Assistive Device Gait Belt,Front Wheeled Walker Orthotic/Prosthetic Devices or Brace: No Transfers Transfer Destination Bed Transfer Technique sit<>stand Transfer Ability Level of Assist Minimal Assistance,1 Person Assistance,Use of Upper Extremities Comments Mobility Comments Pt in bed upon arrival, agreeable to work w/ PT. Reports worse pain today. SBA and increased time for sup<> sit and scooting EOB. Min A for sit<>stand w/ FWW, pt stood twice but was unable to advance LE either time and reported 10/10 pain. Insructed pt to sit, she required Mod A to lay back down and Max A x2 to scoot up in bed. She was screaming out in pain, RN aware and providing addtl meds . Pt left in bed w/ all needs in reach. Gait Assessment Comments Gait Comments Unable to ambulate this AM Stair Climbing Assessment Comments Stair Climbing Comments Did not assess. PT-Balance Assessment Sitting Balance and Reactions Static Sitting Balance Ability Good Dynamic Sitting Balance Ability Good Standing Balance and Reactions Static Standing Balance Ability Poor Dynamic Standing Balance Ability Poor Device Used FWW M5 PT-IP Objective Assessments Start: 04/04/23 13:12 Freq: NEEDED Status: Active Protocol: Document 04/04/23 10:15 AB (Rec: 04/04/23 13:36 AB [id number]) Orientation Orientation/Cognition Level of Alertness Alert Orientation Name,Place,Situation Language Function Ability Hard of Hearing Safety Awareness Decreased Safety Awareness Memory Description Short Term Impaired Comments with confusion Gross Range of Motion Lower Extremity ROM Impairments L knee flexion: ~ 70 deg Strength Lower Extremity Strength Assessment Left Impaired Hip 4-/5 Knee 3+/5 Muscle Tone Muscle Tone WNL Yes M6 PT-IP Treatment Start: 04/04/23 13:12 Freq: NEEDED Status: Active Protocol: Document 04/05/23 10:05 KS (Rec: 04/05/23 11:44 MI [id number]) Physical Therapy Treatment Exercises Exercises Ankle Pumps,Quad Sets Education Education Provided Weight Bearing Status,Post-Op Packet,Safety M7 PT-IP Assessment and Plan Start: 04/04/23 13:12 Freq: NEEDED Status: Active Protocol: Document 04/05/23 10:05 KS (Rec: 04/05/23 11:44 KS [id number]) PT Summary Assessment and Plan Potential Rehabilitation Potential Fair Summary Impairments Pain,ROM,Strength,Balance, Coordination,Sensation,Tone, Cognition,Bed Mobility, Transfers,Gait,Activity Tolerance Progress Towards Goals Slow Progress due to Pain,Slow Progress due to Activity Tolerance Assessment Summary Pt limited by pain and unable to show progress this AM. Required increased assistance as well. Will continue to assess progress this PM. Goals Bed Mobility Goal Independent Transfer Goal Independent,Front Wheeled Walker Gait Goal Independent,Front Wheel Walker Gait Distance 250 Other Goals up/down 3 steps R rail ascending SBA Days to Meet Goals 5 Frequency of Treatment Frequency Of Treatment Twice a Day Treatment Plan Physical Therapy Treatment Plan Bed Mobility Training,Transfer Training,Gait Training, Therapeutic Exercise,Balance Retraining,Post Op Education, Discharge Planning,Hot or Cold Pack,Neuromuscular Re-ed, Coordination Retraining,Manual Therapy Weight Bearing Status Weight Bearing Status Weight Bear as Tolerated Allowed Weight Bearing Amount (enter % LLE WBAT or #) (%) Recommendations To Nursing Amount of Assist Needed 1 Person Assist Discharge Recommendations PT Discharge Recommendations Home with 22/12 Assist Available,Home Health,SNF Rehab,Home vs SNF Transportation Needs at Discharge Private Vehicle
[2023-04-05] MEDS: HYDROMORPHONE 0.5 MG INJ IV (10:36)
--- NOTE | 2023-04-05 13:49 | PT-IP ANOTE ---
Pt refused PT this PM due to fatigue from recent mobilization w/ nursing staff. SUPERVISOR TELEPHONE INFORMATION and pt report she was able to transfer to [facility]. Pt falling asleep while talking w/ this therapist - pts daughter helping in conversation. Will check back on pt tomorrow.
[2023-04-05 20:35] VITALS: BP 133/55; PULSE 78; RESP 16; TEMP 36.3; O2SAT 93
[2023-04-05 21:11] VITALS: BP 133/55; PULSE 78
[2023-04-06] MEDS: ACETAMINOPHEN 325 MG TABLET 650 MG PO ×3 (05:41→18:07)
[2023-04-06] MEDS: LEVOTHYROXINE 88 MCG TABLET PO (05:41)
[2023-04-06] MEDS: OXYCODONE IR 5 MG TABLET PO ×2 (05:56→10:33)
--- NOTE | 2023-04-06 07:04 | PM.PNPO.1 ---
Subjective Subjective Date Patient Seen: 04/06/23 Time Patient Seen: 07:05 Interval history: Pt sleeping, awakens easily to voice. Becomes agitated when I ask her about disposition, says I need to talk to her daughter d/t pts hearing impediment. She does tell me that she feels she needs rehab as she still can't get in and out of bed on her own. She has 7 steps to get into her house and does not feel she can safely get up them. From a surgical standpoint, she appears to be doing well. She no longer complains of dysesthesia in the leg and proudly shows me that she can pull her knee up to almost 90 degrees. Continues to complain of being sleepy. Exam Vital Signs (past 8 hours): Oxygen Delivery Method Room Air Oxygen Flow Rate 0 Narrative Exam Narrative: 4/5 hip flexors, quadiceps, hamstrings; 5/5 PF, DF, EHL on left. Sensation to light touch intact throughout LLE. Calf soft and nontender. KRISTINA dressing functioning, CDI. Objective Labs 04/04/23 04:35 PFS Medical History (Updated 04/04/23 @ 10:13 by Nadine Rasmussen PA-C) Stress bladder incontinence, female High myopia Hearing loss CAD (coronary artery disease) History of sleep apnea History of gastroesophageal reflux (GERD) History of arthritis Trigeminal neuralgia History of TIA (transient ischemic attack) History of hearing loss History of hyperlipidemia History of hypertension History of hypothyroidism History of anticoagulant therapy History of chronic atrial fibrillation Surgical History (Updated 04/04/23 @ 10:13 by Nadine Rasmussen PA-C) History of surgery (~2004) History of surgery (~09/30/17) History of inguinal hernia repair (~11/26/16) History of hip replacement History of coronary artery stent placement (~2001) History of coronary angioplasty (~06/2001) History of cochlear implant History of cataract extraction (~2012) History of cardiac catheterization (~12/2001) History of angioplasty Social History household members: spouse and none Smoking Status: Former smoker alcohol intake: current Assessment & Plan Post-op Assessment and plan (1) Total knee replacement status: Assessment and Plan narrative: In review of CM notes, it looks like SNF placement was pending facility reviews. Discharge today once placement confirmed. Eliquis for VTE prophylaxis, multimodal pain control, f/u in office in 2 weeks as scheduled. (2) Acute postoperative anemia due to expected blood loss: Assessment and Plan narrative: Asymptomatic, no intervention needed. Postoperative Procedures: Procedures Operation Date: 04/03/23 14:15 Actual Procedure Side Surgeon p Total Knee Arthroplasty Left Mili Kemp MD Postoperative day: 3 Quality VTE Deep Vein Thrombosis/Pulmonary Embolism Present on Admission: No
[2023-04-06 07:47] VITALS: BP 145/59; PULSE 83; RESP 16; TEMP 37.4; O2SAT 94
[2023-04-06] MEDS: OXYBUTYNIN 5 MG ER TAB PO (10:32)
[2023-04-06 10:33] VITALS: BP 145/59; PULSE 83
[2023-04-06] MEDS: LOSARTAN 50 MG TABLET PO ×2 (10:33→21:01)
[2023-04-06] MEDS: DOCUSATE 100 MG CAPSULE PO ×2 (10:33→21:01)
[2023-04-06] MEDS: APIXABAN 5 MG TABLET PO ×2 (10:33→21:02)
--- NOTE | 2023-04-06 10:45 | PT.IPTN ---
Current Diagnoses Acute posthemorrhagic anemia (04/04/23) Unilateral primary osteoarthritis, left knee (04/04/23) Presence of unspecified artificial knee joint (04/04/23) Surgery Performed Operation Date: 04/03/23 14:15 Actual Procedures p Total Knee Arthroplasty(Left) - Mili Kemp MD Physical Therapy Treatment Note M2 PT-IP Current Condition Start: 04/04/23 13:12 Freq: NEEDED Status: Active Protocol: Document 04/04/23 10:15 AB (Rec: 04/04/23 13:36 AB [id number]) Physical Therapy Current Condition Current Condition Evaluation Date 04/04/23 Treatment Diagnosis s/p L TKA; difficult in walking Onset Date 04/03/23 M3 PT-IP Subjective Start: 04/04/23 13:12 Freq: NEEDED Status: Active Protocol: Document 04/06/23 11:42 [facility] (Rec: 04/06/23 11:49 [facility] [id number]) Subjective Physical Therapy Visit Type Type Treatment Note Visit Start Time 10:06 Visit Stop Time 10:40 Total Visit Minutes 34 Number of CASTING TRUCKER Visits 0 Physical Therapy Visit Comments Patient Comments Pt agreeable to do PT. Wants to get her knee to bend more. Still feels worried about going home. Therapy Pain Assessment Pain When Pain Assessed During Mobility Pain Present Pain Present Pain Reported Location Left Knee Intensity 6 Scale Used Numeric (0 - 10) Pain Behaviors Wincing Pain Management Techniques Elevation,Modification of Treatment,Re-positioning, Timing of Activity with Medications M4 PT-IP Mobility and Gait Start: 04/04/23 13:12 Freq: NEEDED Status: Active Protocol: Document 04/06/23 11:42 [facility] (Rec: 04/06/23 11:49 [facility] [id number]) PT-Bed Mobility Assessment Supine to Sit Supine to Sit Standby Assistance Scooting Scooting to Edge of Bed Standby Assistance PT-Transfer Assessment Sit to and From Stand Sit to and from Stand Minimal Assistance,1 Person Assistance,Use of Upper Extremities Equipment Transfer Assistive Device Gait Belt,Front Wheeled Walker Orthotic/Prosthetic Devices or Brace: No Transfers Transfer Destination Chair,Bedside Commode Transfer Technique Stand Step Pivot Transfer Ability Level of Assist Minimal Assistance,1 Person Assistance,Use of Upper Extremities Comments Mobility Comments Pt did well with bed mobility SBA and scooting to EOB. From Bed which is higher for pt, pt able to do CGA sit to stand to FWW but reqires min A w/ transfer to commode and pt stood holding walker CGA w/PT doffing brief as pt unable. min A for lowering to commode. Pt stood to FWW from higher commode to FWW CGA then stood CGA w/both hands on walker w/ PT wiping and pulling up brief . Pt then transfered to recliner min A and min A to lower. Pt able to scoot back in chair and did exercises then left w/ice pack and call light in reach and edu to call if need assistance. RN informed of pt positioning. Gait Assessment Comments Gait Comments Unable to ambulate this AM M5 PT-IP Objective Assessments Start: 04/04/23 13:12 Freq: NEEDED Status: Active Protocol: Document 04/04/23 10:15 AB (Rec: 04/04/23 13:36 AB [id number]) Orientation Orientation/Cognition Level of Alertness Alert Orientation Name,Place,Situation Language Function Ability Hard of Hearing Safety Awareness Decreased Safety Awareness Memory Description Short Term Impaired Comments with confusion Gross Range of Motion Lower Extremity ROM Impairments L knee flexion: ~ 70 deg Strength Lower Extremity Strength Assessment Left Impaired Hip 4-/5 Knee 3+/5 Muscle Tone Muscle Tone WNL Yes M6 PT-IP Treatment Start: 04/04/23 13:12 Freq: NEEDED Status: Active Protocol: Document 04/06/23 11:42 [facility] (Rec: 04/06/23 11:49 [facility] [id number]) Physical Therapy Treatment Exercises Exercises Ankle Pumps,Quad Sets,Heel Slides,Straight Leg Raises, Seated Knee Flexion/Extension Education Education Provided Weight Bearing Status,Safety M7 PT-IP Assessment and Plan Start: 04/04/23 13:12 Freq: NEEDED Status: Active Protocol: Document 04/06/23 11:42 [facility] (Rec: 04/06/23 11:49 [facility] [id number]) PT Summary Assessment and Plan Summary Impairments Pain,ROM,Strength,Balance, Coordination,Sensation,Tone, Cognition,Bed Mobility, Transfers,Gait,Activity Tolerance Progress Towards Goals Slow Progress due to Pain,Slow Progress due to Activity Tolerance Assessment Summary Pt cont to be slow to progress w/mobility d/t pain and activity tolerance. She has signfiicant pain w/WB and is limited ability to do functional mobility and ADLs. Pt unable to walk at this time d/t pain. At this time, d/t pt weakness and dec ability to do functional ability including walking and sit to stands indep, pt would benefit from SNF rehab. Goals Bed Mobility Goal Independent Transfer Goal Independent,Front Wheeled Walker Gait Goal Independent,Front Wheel Walker Gait Distance 250 Other Goals up/down 3 steps R rail ascending SBA Days to Meet Goals 5 Frequency of Treatment Frequency Of Treatment Twice a Day Treatment Plan Physical Therapy Treatment Plan Bed Mobility Training,Transfer Training,Gait Training, Therapeutic Exercise,Balance Retraining,Post Op Education, Discharge Planning,Hot or Cold Pack,Neuromuscular Re-ed, Coordination Retraining,Manual Therapy Weight Bearing Status Weight Bearing Status Weight Bear as Tolerated Allowed Weight Bearing Amount (enter % LLE WBAT or #) (%) Recommendations To Nursing Amount of Assist Needed 1 Person Assist Discharge Recommendations PT Discharge Recommendations SNF Rehab Transportation Needs at Discharge Private Vehicle
--- NOTE | 2023-04-06 16:10 | CM.DPC ---
DCP Continued: ANTIQUE FURNITURE REPAIRER reviewed EMR. Palma at reports unable to accept patient due to [employer]. Zenobia at [facility] agreed to attempt to get [employer] auth. tentative transport set up for 1000 tomorrow. [facility] needs patient SSN. Per PT, still could benefit from SNF. ANTIQUE FURNITURE REPAIRER entered room and introduced self and role. Patient accompanied by dtr Akua. Patient asked for this ANTIQUE FURNITURE REPAIRER to speak with Akua about the d/c plan. ANTIQUE FURNITURE REPAIRER explained insurance barrier to dtr. Dtr in agreement for private pay for SNF if needed. ANTIQUE FURNITURE REPAIRER answered questions to best of ability. ANTIQUE FURNITURE REPAIRER updated ssrs report developer re: dcp. Plan: pending [employer] auth. transport set up with [facility] for 1000 d/c tomorrow. CM team will follow closely in am. COLLEEN Cm
--- NOTE | 2023-04-06 16:38 | OT.IPNOTE ---
Attempted to see pt for OT eval. Pt is sleeping soundly. Pt is planned for discharge to SNF tomorrow. Will hold at this time and continue to follow.
[2023-04-06] MEDS: OXYCODONE IR 10 MG TABLET PO (18:07)
[2023-04-06 19:00] VITALS: BP 137/66; PULSE 69; RESP 16; TEMP 36.7; O2SAT 94
[2023-04-06] MEDS: GABAPENTIN 300 MG CAPSULE PO (21:02)
[2023-04-07] MEDS: LEVOTHYROXINE 88 MCG TABLET PO (05:55)
[2023-04-07] MEDS: OXYCODONE IR 5 MG TABLET PO ×2 (05:55→09:26)
[2023-04-07] MEDS: ACETAMINOPHEN 325 MG TABLET 650 MG PO (05:55)
--- NOTE | 2023-04-07 08:34 | OT.IPNOTE ---
Pt being discharged to skilled rehab today, therefore defer to skilled OT for goals.
[2023-04-07 09:00] VITALS: BP 125/56; PULSE 77; RESP 16; TEMP 36.6; O2SAT 94
[2023-04-07] MEDS: DOCUSATE 100 MG CAPSULE PO (09:25)
[2023-04-07] MEDS: OXYBUTYNIN 5 MG ER TAB PO (09:25)
[2023-04-07 09:27] VITALS: BP 125/56; PULSE 77
[2023-04-07] MEDS: APIXABAN 5 MG TABLET PO (09:27)
[2023-04-07] MEDS: LOSARTAN 50 MG TABLET PO (09:27)
[2023-04-07] MEDS: hydrOXYzine pamoate 25 MG CAPSULE PO (09:27)
--- NOTE | 2023-04-07 09:36 | CM.DPC ---
DCP Continued: AUTOMOTIVE PRODUCTION WORKER reviewed EMR. AUTOMOTIVE PRODUCTION WORKER spoke with [facility]. Obtained [employer] auth for SNF able to accept patient today transport arranged for 1000. AUTOMOTIVE PRODUCTION WORKER updated nursing staff/PA. AUTOMOTIVE PRODUCTION WORKER completed PASRR CM Agronomy Specialist Kinza kindly agreed to send d/c information, med list, and PASRR to [facility]. AUTOMOTIVE PRODUCTION WORKER spoke with dtr over phone. In agreement with plan. AUTOMOTIVE PRODUCTION WORKER spoke with patient in room. Patient excited and agreeable to plan. Plan: patient to d/c to [facility] today at 1000 via facility transport. CM team will continue to follow closely. COLLEEN Cm
== END 2023-04-07 10:00 ==
LOC: OR 04-06 09:07 → AC 04-06 09:08
PROVIDERS: Admitting Provider Orthopaedic Surgery Foot and Ankle Surgery; Referring Provider Orthopaedic Surgery Foot and Ankle Surgery; Visit Provider Orthopaedic Surgery Foot and Ankle Surgery
PROC: 0SRD0JZ Replacement of Left Knee Joint with Synthetic Substitute, Open Approach (ICD-10-PCS; CPT 27447; principal; 2023-04-03 14:15)
DX: M17.12 Unilateral primary osteoarthritis, left knee (principal); I10 Essential (primary) hypertension; I48.91 Unspecified atrial fibrillation; J44.9 Chronic obstructive pulmonary disease, unspecified; M25.762 Osteophyte, left knee; D62 Acute posthemorrhagic anemia
CPT/HCPCS: 27447; 36415; 73560; 85014; 85018; 97110; 97162; 97530; C1776; G0378; C1713; C9290; J0171; J0690; J1100; J1170; J2405; J2704; J3010